=== PATIENT | female | born 2000 | race Asian ===

== ENCOUNTER 2023-08-29 06:20 | Emergency (ER) | payer SELFPAY ==
[~2023-08-29] VITALS: Ht 154.9 cm; Wt 72.0 kg
[2023-08-29 06:30] VITALS: TEMP 98.2
[2023-08-29 07:04] VITALS: BP 110/62; PULSE 61; RESP 16
[2023-08-29] MEDS ORDERED: IBUPROFEN 600 MG TABLET PO ONE (07:15)
[2023-08-29] MEDS ORDERED: LIDOCAINE 5% TRANSDERMAL PATCH TD ONE (07:15)
[2023-08-29] MEDS ORDERED: ACETAMINOPHEN 500 MG TABLET PO ONE (07:15)
[2023-08-29] MEDS ORDERED: IBUP-1492 PO (07:17)
[2023-08-29] MEDS ORDERED: LIDO700A15 TP (07:17)
== END 2023-08-29 07:45 | disposition home or self-care (01) ==
LOC: EMS 06:22
DX: S16.1XXA Strain of muscle, fascia and tendon at neck level, initial encounter (principal); S39.012A Strain of muscle, fascia and tendon of lower back, initial encounter; F17.210 Nicotine dependence, cigarettes, uncomplicated; V49.88XA Car occupant (driver) (passenger) injured in other specified transport accidents, initial encounter; Y93.89 Activity, other specified; Y92.89 Other specified places as the place of occurrence of the external cause; Y99.8 Other external cause status
CPT/HCPCS: 99284; Z7502; Z7610

== ENCOUNTER 2024-07-16 10:42 | Emergency (ER) | payer OTHER ==
[~2024-07-16] VITALS: Ht 160 cm; Wt 68.2 kg
[~2024-07-16 10:42] MED LIST: IBUP-1492 PO; LIDO700A15 TP
[2024-07-16 10:46] VITALS: TEMP 98
[2024-07-16] MEDS: IBUPROFEN 600 MG TABLET PO ONE (11:23)
[2024-07-16] MEDS: ACETAMINOPHEN 500 MG TABLET PO ONE (11:23)
[2024-07-16] MEDS: LIDOCAINE 5% TRANSDERMAL PATCH TD ONE (11:24)
[2024-07-16] MEDS ORDERED: ACET-3385 PO (13:57)
[2024-07-16 14:00] VITALS: BP 125/71; PULSE 74; RESP 16; O2SAT 100
== END 2024-07-16 15:48 | disposition home or self-care (01) ==
LOC: EMS 10:42
DX: S13.4XXA Sprain of ligaments of cervical spine, initial encounter (principal); V89.2XXA Person injured in unspecified motor-vehicle accident, traffic, initial encounter; Y93.89 Activity, other specified; Y92.89 Other specified places as the place of occurrence of the external cause; Y99.8 Other external cause status
CPT/HCPCS: 72125; 99284; Z7502; Z7610